=== PATIENT | male | born 1960 | race Hispanic/Latino ===

== ENCOUNTER 2017-01-15 09:15 | Emergency (ER) | payer MEDICAID ==
[~2017-01-15] VITALS: Ht 160 cm; Wt 77.1 kg
[~2017-01-15 09:15] MED LIST: ALBUTEROL SULFAT2 MG INH; AMBIEN5 MG ORAL; CATAPRES0.1 MG ORAL; COLACE100 MG ORAL; CRANBERRY400 MG PO; HIBICLENS118 ML ORAL; KEPPRA500 MG ORAL; MULTI VITAMIN1 EACH ORAL; OYSTER SHELL+D1 EACH PO; TYLENOL325 MG ORAL; ULTRAM50 MG ORAL; VASOTEC20 MG ORAL
[2017-01-15] MEDS ORDERED: FUROSEMIDE20 M1 ORAL (09:36)
[2017-01-15] MEDS ORDERED: ALUM-MAG HYDRO360 ML PO (09:36)
[2017-01-15] MEDS ORDERED: TAMSULOSIN HCL0.4 MG ORAL (09:36)
[2017-01-15] MEDS ORDERED: OMEPRAZOLE20 M2 ORAL (09:39)
[2017-01-15] MEDS ORDERED: NIFEDIPINE ER60 M2 ORAL (09:39)
[2017-01-15] MEDS ORDERED: POLYETHYLENE GL17 GM ORAL (09:39)
[2017-01-15] MEDS ORDERED: VESICARE5 MG ORAL (09:39)
[2017-01-15 10:27] LABS: BASOPHILS % (AUTO) 2.6 % (0.0-2.0); EOSINOPHILS % (AUTO) 12.4 % (0.0-3.0); LYMPHOCYTES % (AUTO) 33.1 % (20.0-45.0); MEAN CORPUSCULAR HEMOGLOBIN 28.4 PG (27.0-31.0); MEAN CORPUSCULAR VOLUME 86 FL (80-99); MEAN PLATELET VOLUME 6.8 FL (6.5-10.1); MONOCYTES % (AUTO) 11.4 % (1.0-10.0); NEUTROPHILS % (AUTO) 40.6 % (45.0-75.0); PLATELET COUNT 138 K/UL (150-450); RED BLOOD COUNT 3.46 M/UL (4.70-6.10); RED CELL DISTRIBUTION WIDTH 11.3 % (11.6-14.8); WHITE BLOOD COUNT 3.9 K/UL (4.8-10.8)
[2017-01-15 10:32] LABS: CALCIUM 8.3 mg/dL (8.6-10.2); CREATININE 5.1 mg/dL (0.7-1.2); GLOMERULAR FILTRATION RATE 11.8 mL/min (>60); POTASSIUM 4.3 mEQ/L (3.4-4.9); TOTAL PROTEIN 5.6 g/dL (6.6-8.7)
--- NOTE | 2017-01-15 10:32 | Diagnostic Imaging Report ---
Indications: Shortness of breath Technique: Portable AP chest Findings: Comparison: 01/20/2011 Cardiac silhouette remains enlarged. Pulmonary vascular redistribution, mild bibasilar interstitial prominence have developed. No pleural abnormality evident. Aortic arch calcification, tracheostomy tube again noted. IMPRESSION: Findings suggest development of mild congestive heart failure
[2017-01-15 10:59] VITALS: BP 141/88
[2017-01-15 11:01] LABS: CKMB 2.2 ng/mL (< 6.7); TROPONIN I < 0.30 ng/mL (<=0.30)
[2017-01-15 11:04] LABS: APPEARANCE,URINE CLEAR; KETONES,URINE NEGATIVE (NEGATIVE); LEUKOCYTE ESTERASE ,URINE NEGATIVE (NEGATIVE); NITRITE,URINE NEGATIVE (NEGATIVE); PH,URINE 5 (4.5-8.0); PROTEIN,URINE 4+ (NEGATIVE); UROBILINOGEN,URINE NORMAL MG/DL (0.0-1.0)
[2017-01-15 11:26] LABS: BACTERIA,URINE FEW /HPF; SQUAMOUS EPITHELIAL CELL,UR OCCASIONAL /LPF (NONE/OCC); WBC,URINE 0-2 /HPF (0 - 0)
[2017-01-15 11:28] LABS: AMORPHOUS SEDIMENT,UR OCCASIONAL /LPF; MUCUS,URINE FEW /LPF (NONE/OCC)
[2017-01-15 11:52] VITALS: BP 139/90
--- NOTE | 2017-01-15 15:44 | Emergency Room Report ---
History of Present Illness General Chief Complaint: Abnormal Labs Source: Medical Record Present Illness HPI 56-year-old male presents to ED for abnormal labs. Patient resides in convalescent home. Per EMS patient had elevated BUN/creatinine. Patient has no prior history of renal disease. Arrival patient shows no signs of distress. Denies any symptoms. Denies any fevers or chills. Denies weakness. Denies chest pain or shortness of breath. Patient has trach on room air. No other aggravating or relieving factors. Denies any other associated symptoms Allergies: Coded Allergies: CIPROFLOXACIN (Verified Allergy, Unknown, 09/19/15) Patient History Past Medical History: DM, GERD, seizures Past Surgical History: other - trach Pertinent Family History: none Social History: Denies: alcohol use, drug use, smoking Immunizations: UTD Reviewed Nursing Documentation: PMH: Agreed, PSxH: Agreed Nursing Documentation-PMH Past Medical History: No History, Except For Hx Hypertension: Yes Hx Diabetes: Yes Hx Cancer: No Hx Gastrointestinal Problems: Yes - ESOPHAGEAL REFLUX Hx Seizures: Yes Review of Systems All Other Systems: negative except mentioned in HPI Physical Exam Vital Signs Date Time Temp Pulse Resp B/P Pulse Ox O2 Delivery O2 Flow Rate FiO2 01/15/17 09:20 98.1 72 18 145/74 99 Trach Collar Sp02 EP Interpretation: reviewed, normal General Appearance: no apparent distress, alert, GCS 15, non-toxic Head: normocephalic, atraumatic Eyes: bilateral eye PERRL, bilateral eye normal inspection ENT: hearing grossly normal, normal pharynx, no angioedema, normal voice Neck: full range of motion, supple/symm/no masses, tracheotomy Respiratory: chest non-tender, lungs clear, normal breath sounds, speaking full sentences Cardiovascular #1: regular rate, rhythm, no edema Cardiovascular #2: 2+ carotid (R), 2+ carotid (L), 2+ radial (R), 2+ radial (L) , 2+ dorsalis pedis (R), 2+ dorsalis pedis (L) Gastrointestinal: normal bowel sounds, non tender, soft, non-distended, no guarding, no rebound Rectal: deferred Genitourinary: normal inspection, no CVA tenderness Musculoskeletal: back normal, gait/station normal, normal range of motion, non- tender Neurologic: alert, oriented x3, responsive, motor strength/tone normal, sensory intact, speech normal Psychiatric: judgement/insight normal, memory normal, mood/affect normal, no suicidal/homicidal ideation Reflexes: 3+ bicep (R), 3+ bicep (L), 3+ tricep (R), 3+ tricep (L), 3+ knee (R) , 3+ knee (L) Skin: normal color, no rash, warm/dry, well hydrated Lymphatic: no adenopathy Medical Decision Making Diagnostic Impression: Primary Impression: acute renal failure Additional Impression: CHF (congestive heart failure) Qualified Codes: I50.9 - Heart failure, unspecified ER Course Hospital Course 56-year-old male presents to ED for abnormal labs. Elevated BUN/creatinine Differential diagnoses include: dehydration, sepsis, ARF Clinical course Patient placed on stretcher. on quality assurance monitor. After initial history and physical I ordered labs, EKG, chest x-ray labs reviewed- no leukocytosis, hemoglobin/hematocrit stable, BUN/creatinine elevated, potassium okay, troponins negative, BNP mildly elevated EKG-normal sinus rhythm, no acute ischemic changes Chest x-ray- mild CHF changes IV fluids given. Because of insurance patient will be transferred I. I feel this is a highly complex case requiring extensive working including EKG/Rhythm strip, Xray/CT/US, Blood/urine lab work, repeat exams while in ED, and administration of strong opiates/narcotics for pain control, admission to hospital or close patient follow up. Diagnosis - ARF, CHF transferred in serious conditon Labs Test 01/15/17 10:15 White Blood Count 3.9 K/UL (4.8-10.8) Red Blood Count 3.46 M/UL (4.70-6.10) Hemoglobin 9.8 G/DL (14.2-18.0) Hematocrit 29.8 % (42.0-52.0) Mean Corpuscular Volume 86 FL (80-99) Mean Corpuscular Hemoglobin 28.4 PG (27.0-31.0) Mean Corpuscular Hemoglobin Concent 33.0 G/DL (32.0-36.0) Red Cell Distribution Width 11.3 % (11.6-14.8) Platelet Count 138 K/UL (150-450) Mean Platelet Volume 6.8 FL (6.5-10.1) Neutrophils (%) (Auto) 40.6 % (45.0-75.0) Lymphocytes (%) (Auto) 33.1 % (20.0-45.0) Monocytes (%) (Auto) 11.4 % (1.0-10.0) Eosinophils (%) (Auto) 12.4 % (0.0-3.0) Basophils (%) (Auto) 2.6 % (0.0-2.0) Urine Color Yellow Urine Appearance Clear Urine pH 5 (4.5-8.0) Urine Specific [place] 1.010 (1.005-1.035) Urine Protein 4+ (NEGATIVE) Urine Glucose (UA) Negative (NEGATIVE) Urine Ketones Negative (NEGATIVE) Urine Occult Blood 2+ (NEGATIVE) Urine Nitrite Negative (NEGATIVE) Urine Bilirubin Negative (NEGATIVE) Urine Urobilinogen Normal MG/DL (0.0-1.0) Urine Leukocyte Esterase Negative (NEGATIVE) Urine RBC 2-4 /HPF (0 - 0) Urine WBC 0-2 /HPF (0 - 0) Urine Squamous Epithelial Cells Occasional /LPF Urine Amorphous Sediment Occasional /LPF (NONE) Urine Bacteria Few /HPF (NONE) Urine Mucus Few /LPF (NONE/OCC) Sodium Level 142 mEQ/L (135-145) Potassium Level 4.3 mEQ/L (3.4-4.9) Chloride Level 107 mEQ/L (98-107) Carbon Dioxide Level 19 mEQ/L (20-30) Anion Gap 16 (5-15) Blood Urea Nitrogen 62 mg/dL (7-23) Creatinine 5.1 mg/dL (0.7-1.2) Estimat Glomerular Filtration Rate 11.8 mL/min (>60) Glucose Level 125 mg/dL (74-106) Calcium Level 8.3 mg/dL (8.6-10.2) Total Bilirubin 0.3 mg/dL (0.0-1.2) Aspartate Amino Transf (AST/SGOT) 25 U/L (5-40) Alanine Aminotransferase (ALT/SGPT) 14 U/L (3-41) Alkaline Phosphatase 69 U/L (40-129) Total Creatine Kinase 151 U/L (38-174) Creatine Kinase MB 2.2 ng/mL (< 6.7) Creatine Kinase MB Relative Index 1.4 Troponin I < 0.30 ng/mL (<=0.30) Pro-B-Type Natriuretic Peptide 475 pg/mL (0-125) Total Protein 5.6 g/dL (6.6-8.7) Albumin 2.9 g/dL (3.5-5.2) Globulin 2.7 g/dL Albumin/Globulin Ratio 1.0 (1.0-2.7) EKG Diagnostic Results Rate: normal Rhythm: NSR ST Segments: no acute changes ASA given to the pt in ED: No Rhythm Strip Diag. Results EP Interpretation: yes Rhythm: NSR, no PVC's, no ectopy Chest X-Ray Diagnostic Results EP Interpretation: No Findings: no consolidation, no effusion, no pneumothorax, no acute cardiopulmonary disease, other - mild chf Number of Views: 1 Last Vital Signs Date Time Temp Pulse Resp B/P Pulse Ox O2 Delivery O2 Flow Rate FiO2 01/15/17 11:52 98.1 65 20 139/90 39 Room Air Status: improved Disposition: XFER [facility] Condition: Serious Referrals: TAO ABRAHAM (PCP) ASTRID CORTEZ M.D. Jan 15, 2017 15:44
--- NOTE | 2017-01-18 08:29 | Cardiology Report ---
APPROVED REPORT EKG Measurement Heart [id number] Normal sinus rhythm Nonspecific T wave abnormality Prolonged QT Abnormal ECG
== END 2017-01-15 12:30 | disposition short-term general hospital (02) ==
LOC: EDBD 09:15 → EMR 09:43
DX: N17.9 Acute kidney failure, unspecified (principal); I50.9 Heart failure, unspecified; I10 Essential (primary) hypertension; E11.9 Type 2 diabetes mellitus without complications; Z87.19 Personal history of other diseases of the digestive system; Z86.69 Personal history of other diseases of the nervous system and sense organs
CPT/HCPCS: 36415; 71010; 80053; 81003; 82550; 82553; 83880; 84484; 85025; 93005; 96374